=== PATIENT | female | born 1975 | race American Indian/Alaskan Native ===

== ENCOUNTER 2021-02-04 09:19 | Outpatient (CLI) | payer BC ==
--- NOTE | 2021-02-04 10:43 | Mammography Report ---
ULTRASOUND GUIDED RIGHT BREAST BIOPSY, 02/04/2021 RIGHT DIAGNOSTIC MAMMOGRAM CLINICAL INFORMATION / INDICATION: ABNORMAL MAMMO. COMPARISON: Outside report with no imaging detailing a 1.4 cm right outer breast nodule PROCEDURE: Risks, benefits, and indications to the procedure were discussed with the patient in detail, includin g bleeding, infection, hematoma formation, and inadequate tissue sampling. The patient agreed to proc eed with both verbal and written consent. A timeout procedure was performed with two patient identifi ers. The breast was prepped and draped in the usual sterile fashion. Lidocaine 1% was used for local anest hesia. Under direct ultrasound guidance, 4 16-gauge core samples were obtained of the right upper out er breast nodule. A biopsy marker was then placed. Biopsy device was removed and hemostasis achieved with manual pressure. A sterile dressing was applied to the skin. The patient tolerated the procedure without difficulty. No complications were encountered. Postbiopsy instructions were discussed with the patient and given in writing. Specimens were sent to pathology. The patient was then sent for a confirmatory mammogram to demonstrate adequate clip positioning in th e area in question. IMPRESSION: 1. Technically successful ultrasound guided right breast biopsy. 2. Satisfactory positioning of the biopsy clip on the post procedure mammogram. Biopsy results are pending and will be reported in an addendum. Signer Name: Brody Dove MD Signed: 02/04/2021 10:39 AM Workstation Name: [id number]
== END 2021-02-04 09:20 | disposition home or self-care (01) ==
LOC: SPVWC 09:19
PROVIDERS: ATTEND Obstetrics & Gynecology
DX: N63.10 Unspecified lump in the right breast, unspecified quadrant (principal); R92.8 Other abnormal and inconclusive findings on diagnostic imaging of breast; D24.1 Benign neoplasm of right breast; N60.01 Solitary cyst of right breast
CPT/HCPCS: 88305

== ENCOUNTER 2021-07-05 10:33 | Emergency (ER) | payer BC ==
[2021-07-05 11:07] VITALS: BP 130/68
[2021-07-05 12:39] LABS: Basophils # (Auto) 0.1 K/mm3 (0.0-0.1); Basophils % (Auto) 1.3 % (0.0-1.8); Eosinophils # (Auto) 0.2 K/mm3 (0.0-0.4); Eosinophils % (Auto) 5.2 % (0.0-4.3); Hematocrit 37.6 % (30.3-42.9); Hemoglobin 12.4 gm/dl (10.1-14.3); Lymphocytes # (Auto) 1.2 K/mm3 (1.2-5.4); Lymphocytes % (Auto) 25.4 % (13.4-35.0); Mean Corpuscular HGB Conc 33 % (30-34); Mean Corpuscular Volume 97 fl (79-97); Monocytes # (Auto) 0.5 K/mm3 (0.0-0.8); Monocytes % (Auto) 10.4 % (0.0-7.3); Platelet Count 232 K/mm3 (140-440); Red Cell Distribution Width 12.4 % (13.2-15.2)
[2021-07-05 13:02] LABS: Alanine Aminotransferase 14 units/L (7-56); Albumin 4.4 g/dL (3.9-5); Blood Urea Nitrogen 4 mg/dL (7-17); Calcium 9.5 mg/dL (8.4-10.2); Hemolysis Index 3
[2021-07-05 13:03] LABS: BUN/Creatinine Ratio 7
--- NOTE | 2021-07-05 13:43 | Emergency Department Report ---
ED General Adult HPI - General Chief complaint: Extremity Problem,Nontraumatic Stated complaint: BILATERIAL LEG PAIN Time Seen by Provider: 07/05/21 11:21 Source: patient Mode of arrival: Ambulatory Limitations: No Limitations - History of Present Illness Initial comments: 46-year-old -Citizen Of [place] female patient presents with complaints of bilateral lower leg swelling intermittently x2 months, worsening starting yesterday. Patient reports that the swelling seemed to begin after having 360 liposuction done 4 months ago. She reports that she wears compression clothing around her legs daily and sits for work. Patient reports after sitting all day at work her swelling seems to get worse and improves with lying down at night for sleep. She states the swelling again improved upon waking this morning. She denies any pain in her legs, chest pain, shortness of breath, hemoptysis, hormone use, recent long travel/surgeries, or history of DVT/PE/cancer. No past medical history at all per patient. She also denies any skin changes, numbness/tingling/weakness in her legs, or fever/chills/sweats. Severity scale (0 -10): 6 - Related Data Allergies Allergy/AdvReac Type Severity Reaction Status Date / Time No Known Allergies Allergy Unverified 07/05/21 11:03 ED Review of Systems ROS: Stated complaint: BILATERIAL LEG PAIN Other details as noted in HPI Constitutional: denies: chills, fever, malaise Respiratory: denies: cough, orthopnea, shortness of breath, SOB at rest Cardiovascular: edema. denies: chest pain, palpitations, syncope Gastrointestinal: denies: abdominal pain Skin: denies: change in color Neurological: denies: numbness, paresthesias, abnormal gait ED Physical Exam - General Limitations: No Limitations General appearance: alert, in no apparent distress - Head Head exam: Present: atraumatic, normocephalic - Eye Eye exam: Present: normal appearance - Neck Neck exam: Present: normal inspection - Respiratory Respiratory exam: Present: normal lung sounds bilaterally. Absent: respiratory distress - Cardiovascular Cardiovascular Exam: Present: regular rate, normal rhythm - Extremities Exam Extremities exam: Present: full ROM, other (Mild bilateral lower ankle and foot 1+ pitting edema noted; pedal pulses are normal along with normal sensation and skin coloration; no calf tenderness to palpation noted; patient has full range o f motion of the ankles and feet) - Neurological Exam Neurological exam: Present: alert, oriented X3 - Psychiatric Psychiatric exam: Present: normal affect, normal mood - Skin Skin exam: Present: warm, dry, intact, normal color. Absent: rash ED Course Vital Signs 07/05/21 11:06 Temperature 98.2 F Pulse Rate 74 Respiratory 18 Rate Blood Pressure 130/68 [Right] O2 Sat by Pulse 99 Oximetry ED Medical Decision Making - Lab Data Result diagrams: 07/05/21 12:11 07/05/21 12:11 - Medical Decision Making 46-year-old -Citizen Of [place] female patient presents with complaints of bilateral lower leg swelling intermittently x2 months, worsening starting yesterday. Patient reports that the swelling seemed to begin after having 360 liposuction done 4 months ago. She reports that she wears compression clothing around her legs daily and sits for work. Patient reports after sitting all day at work her swelling seems to get worse and improves with lying down at night for sleep. She states the swelling again improved upon waking this morning. She denies any pain in her legs, chest pain, shortness of breath, hemoptysis, hormone use, recent long travel/surgeries, or history of DVT/PE/cancer. No past medical history at all per patient. She also denies any skin changes, numbness/tingling/weakness in her legs, or fever/chills/sweats. PERC score = 0. No acute abnormalities on CBC or CMP. Suspect dependent edema and recommend elevation of the legs frequently and compression hose. Patient is to follow-up with primary care in 3 to 5 days for further evaluation. She is otherwise well-appearing, her vitals are within normal limits, she is stable for discharge home. Discussed in detail signs and symptoms that should prompt immediate return to the emergency department with patient who verbalizes understanding Critical care attestation.: If time is entered above; I have spent that time in minutes in the direct care of this critically ill patient, excluding procedure time. ED Disposition Clinical Impression: Edema of both ankles Disposition: 01 HOME / SELF CARE / HOMELESS Is pt being admited?: No Condition: Stable Instructions: Edema Additional Instructions: Please purchase some [id number] compression hose and wear daily Referrals: PRIMARY MD SHANITA [Primary Care Provider] - 3-5 Days [facility] [Provider Group] - 3-5 Days Forms: Work/School Release Form(ED)
== END 2021-07-05 13:57 | disposition home or self-care (01) ==
LOC: ED 10:33
DX: R60.0 Localized edema (principal)
CPT/HCPCS: 36415; 80053; 83880; 85025; 99283